=== PATIENT | female | born 1985 | race Hispanic/Latino ===

== ENCOUNTER 2024-03-23 13:49 | Inpatient (IN) | payer OTHER, SELFPAY ==
[2024-03-23 14:01] VITALS: BP 136/83; BMI 34.0
[2024-03-23] MEDS: LR 1000 IV ×2 (14:23→16:32)
[2024-03-23 14:49] LABS: % Basophils 0.1 % (0-2); % Eosinophils 0.2 % (0-6); % Immature Granulocytes 0.4 % (0-0.5); % Monocytes 8.3 % (1.7-9.3); Absolute Lymphocytes 1.8 10^3/uL (1.2-3.4); Absolute Monocytes 0.9 10^3/uL (0.1-0.6); Absolute Neutrophils 7.8 10^3/uL (1.4-6.5); Hematocrit 38.1 % (37.0-47.0); Hemoglobin 12.2 g/dL (12.0-16.0); Mean Corpuscular Hgb 28.8 pg (27.0-31.0); Mean Corpuscular Volume 90.1 fL (81.0-99.0); Mean Platelet Volume 10.9 fL (7.4-10.4); Nucleated Red Blood Cells % 0 %; Platelet Count 236 10^3/uL (130-400); Red Blood Cell Count 4.23 10^6/uL (4.20-5.40); Red Cell Dist. Width 13.5 % (11.5-14.5); White Blood Cell Count 10.6 10^3/uL (4.8-10.8)
[2024-03-23 15:01] LABS: Amphetamines Positive (Negative); Marijuana Positive (Negative); Tricyclic Antidepressants Negative (Negative)
[2024-03-23 15:02] LABS: Barbiturates Negative (Negative); Benzodiazepines Negative (Negative); Buprenorphine Negative (Negative); Cocaine Negative (Negative); Methadone Positive (Negative); Methamphetamines Negative (Negative); Opiates Negative (Negative); Phencyclidine Negative (Negative)
[2024-03-23 15:14] LABS: ALT (SGPT) 16 U/L (0-35); AST (SGOT) 29 U/L (14-36); Albumin 3.4 g/dl (3.5-5.0); Alkaline Phosphatase 178 U/L (38-126); Blood Urea Nitrogen 8 mg/dl (7-17); Calcium 8.6 mg/dl (8.4-10.2); Carbon Dioxide 22 mmol/L (22-30); Chloride 100 mmol/L (98-107); Estimated Creatinine Clearance > 125 ml/min; Glucose 80 mg/dl (70-99); Sodium 130 mmol/L (135-145); Total Bilirubin 0.5 mg/dl (0.2-1.3); Total Protein 6.5 g/dl (6.3-8.2); eGFR > 60.00
[2024-03-23 15:24] LABS: Fentanyl, Urine Negative (Negative)
[2024-03-23 15:52] LABS: HIV Combo Negative (Negative)
[2024-03-23 16:20] LABS: Hepatitis B Surface Antigen Negative (Negative)
--- NOTE | 2024-03-23 16:20 | CM ---
CM alerted by nursing that laboring patient with positive tox screen
Spouse reported to nursing previous CPS hx as well with prior child due to drug hx
Pt and spouse did not have custody at some point of prior child but are now reunited
CM will need to complete thorough assessment and report to CPS upon delivery of baby
[2024-03-23 16:39] LABS: Hepatitis B Core Ab, Total Negative (Negative); Hepatitis B Surface Antibody Negative; Hepatitis C Antibody Reactive (Negative)
[2024-03-23 16:58] LABS: Rubella Positive
[2024-03-23] MEDS: SUBLIMAZE 100 MCG EPIDURAL (17:18)
[2024-03-23] MEDS: FENTANYL/BUPIVACAINE 100 EPIDURAL (17:19)
[2024-03-23] MEDS: CLEOCIN 50 IV (17:47)
[2024-03-23] MEDS: ADDERALL 20 MG PO (17:47)
[2024-03-23] MEDS: PITOCIN 30 UNITS/NSS 500 ML IV (18:07)
[2024-03-23] MEDS: NICODERM TRANSDERMAL 21 MG TRANSDERM (20:39)
[2024-03-23] MEDS: NICODERM TRANSDERMAL TRANSDERM (20:41)
[2024-03-23] MEDS: TUMS CHEWABLE TABLET 400 MG PO (21:17)
[2024-03-24] MEDS: LR 1000 IV ×2 (00:15→04:51)
[2024-03-24] MEDS: FENTANYL/BUPIVACAINE 100 EPIDURAL ×2 (00:24→07:29)
[2024-03-24] MEDS: CLEOCIN 50 IV ×2 (01:46→08:23)
[2024-03-24] MEDS: TYLENOL 1000 MG PO (09:46)
[2024-03-24] MEDS: BICITRA 30 ML PO (09:47)
[2024-03-24] MEDS: GENTAMICIN 60 MG IV (10:30)
[2024-03-24] MEDS: NON-FORMULARY ITEM 130 MG PO (11:10)
[2024-03-24] MEDS: ADDERALL 30 MG PO (11:19)
[2024-03-24 15:33] LABS: % Basophils 0.3 % (0-2); % Eosinophils 0.1 % (0-6); % Immature Granulocytes 1.1 % (0-0.5); % Lymphocytes 4.5 % (20.5-51.1); % Monocytes 1.8 % (1.7-9.3); % Neutrophils 92.2 % (42.2-75.2); Absolute Basophils 0.1 10^3/uL (0-0.2); Absolute Immature Granulocytes 0.2 10^3/uL (0-0.05); Absolute Lymphocytes 0.8 10^3/uL (1.2-3.4); Absolute Monocytes 0.3 10^3/uL (0.1-0.6); Absolute Neutrophils 16.3 10^3/uL (1.4-6.5); Hemoglobin 12.6 g/dL (12.0-16.0); Mean Corp Hgb Conc. 33.2 g/dL (33.0-37.0); Mean Corpuscular Hgb 29.5 pg (27.0-31.0); Nucleated Red Blood Cells % 0 %; Platelet Count 212 10^3/uL (130-400); Red Blood Cell Count 4.27 10^6/uL (4.20-5.40); Red Cell Dist. Width 13.4 % (11.5-14.5); White Blood Cell Count 17.7 10^3/uL (4.8-10.8)
[2024-03-24] MEDS: NICODERM TRANSDERMAL 21 MG TRANSDERM (20:58)
[2024-03-24] MEDS: ADDERALL 20 MG PO (20:59)
[2024-03-25] MEDS: MOTRIN 600 MG PO ×2 (02:55→20:53)
[2024-03-25 03:18] LABS: Hematocrit 31.1 % (37.0-47.0); Hemoglobin 10.2 g/dL (12.0-16.0); Mean Corp Hgb Conc. 32.8 g/dL (33.0-37.0); Mean Corpuscular Hgb 29.3 pg (27.0-31.0); Mean Corpuscular Volume 89.4 fL (81.0-99.0); Mean Platelet Volume 10.8 fL (7.4-10.4); Platelet Count 211 10^3/uL (130-400); Red Blood Cell Count 3.48 10^6/uL (4.20-5.40); Red Cell Dist. Width 13.2 % (11.5-14.5); White Blood Cell Count 18.7 10^3/uL (4.8-10.8)
[2024-03-25] MEDS: ADDERALL 30 MG PO (08:11)
[2024-03-25] MEDS: SENOKOT-S 1 TABLET PO (08:12)
[2024-03-25] MEDS: METHADONE 100 MG/10 ML 130 MG PO (08:12)
[2024-03-25] MEDS: PRENATAL PLUS 1 TABLET PO (08:12)
--- NOTE | 2024-03-25 10:12 | CM ---
Addendum entered by Tianna Leslie 03/25/24 14:28:
Order form faxed to [facility] [phone] for breast pump
Addendum entered by Tianna Leslie 03/25/24 12:52:
Received call from Og at [facility]
Per Og this case will be given to Sudheer Jori to follow and develop a Plan of Safe Care as mother's medications were prescribed
Electrical Maintenance Man is June [phone]
not to be discharged until Plan of Safe Care is in place
Original Note:
CM consult - mom with + tox screen for methadone, amphetamines, marijuana
Met with new parents Fatuma and Trjimruss Cj
Parent have named their Hailee Corona
Parents reside at [address] [place] [id number] with their sons Bhupinder,14 and Orville, 10
Mom acknowledged she did not receive PNC - reports discovered in 2nd trimester. Attempted to obtain care but was unable to locate provider who accepted her insurance.
Mom reports she has supplies for including car seat, bassinet and clothing
Mom currently not enrolled in WIC program - given information to apply for program
Unsure of wastewater supervisor for infant - possibly [facility]
Mom currently unemployed. Father - employed
Discussed + tox screen with parents. Meconium pending
Mom acknowledges she takes methadone - attends clinic at [facility] in [place]. Reports prescribed Adderall for ADHD by her PCP, Dr Rakan Mcfadden. Mom reports she uses marijuana and has a medical marijuana card.
Parents aware infant will remain at hospital for 5-7 days for [facility]
Parents aware [facility] to be notified of + tox screen
noted to have tremors, irritability, sneezing and difficulty feeding per mother. Currently being monitored with [facility] by staff. Per staff + withdrawal symptoms noted.
[facility]ed [facility] to report case
Spoke with [id number] - report made
discharge is on hold pending determination of [facility] evaluation
[2024-03-25 13:59] LABS: Urine Albumin Trace (Neg - Trace); Urine Bilirubin Negative (Negative); Urine Character Clear (Clear); Urine Color Yellow; Urine Glucose Negative (Negative); Urine Ketone Negative (Negative); Urine Leukocyte 1+ (Negative); Urine Nitrite Negative (Negative); Urine Occult Blood 1+ (Negative); Urine Urobilinogen Negative (Neg - 1+)
[2024-03-25 14:47] LABS: Urine Mucus Few
[2024-03-25 14:48] LABS: Urine Amorphous Seen
[2024-03-25] MEDS: ADDERALL 20 MG PO (15:41)
[2024-03-25] MEDS: NICODERM TRANSDERMAL 21 MG TRANSDERM (20:54)
[2024-03-26] MEDS: MOTRIN 600 MG PO (05:57)
[2024-03-26] MEDS: ADDERALL 30 MG PO (08:15)
[2024-03-26] MEDS: PRENATAL PLUS PO ×2 (08:15→08:45)
[2024-03-26] MEDS: METHADONE 100 MG/10 ML 130 MG PO (08:15)
[2024-03-26] MEDS: NICODERM TRANSDERMAL 21 MG TRANSDERM (16:00)
[2024-03-26] MEDS: ADDERALL 20 MG PO (16:00)
[2024-03-26] MEDS: ADACEL 0.5 ML IM (18:52)
[2024-03-29 18:05] LABS: Syphilis/T. pallidum Ab Reflex Negative (Negative)
[2024-04-02 11:56] LABS: Hepatitis C Genotype High Res Indeterminate
== END 2024-03-26 19:07 | disposition home or self-care (01) | DRG 768 ==
LOC: LDRP 13:49
PROVIDERS: Obstetrics & Gynecology; Student in an Organized Health Care Education/Training Program; ADMITTING PHYSICIAN Obstetrics & Gynecology
PROC: 10H07YZ Insertion of Other Device into Products of Conception, Via Natural or Artificial Opening (ICD-10-PCS; 2024-03-23)
PROC: 10E0XZZ Delivery of Products of Conception, External Approach (ICD-10-PCS; 2024-03-24)
PROC: 0UBMXZZ Excision of Vulva, External Approach (ICD-10-PCS; 2024-03-24)
PROC: 0W3R7ZZ Control Bleeding in Genitourinary Tract, Via Natural or Artificial Opening (ICD-10-PCS; 2024-03-24)
PROC: 10D17Z9 Manual Extraction of Products of Conception, Retained, Via Natural or Artificial Opening (ICD-10-PCS; 2024-03-24)
PROC: 0HQ9XZZ Repair Perineum Skin, External Approach (ICD-10-PCS; 2024-03-24)
DX: O42.02 Full-term premature rupture of membranes, onset of labor within 24 hours of rupture (principal); Z37.0 Single live birth; F11.20 Opioid dependence, uncomplicated; O98.32 Other infections with a predominantly sexual mode of transmission complicating childbirth; O72.2 Delayed and secondary postpartum hemorrhage; O99.324 Drug use complicating childbirth; Z3A.39 39 weeks gestation of pregnancy; Z88.0 Allergy status to penicillin; O70.0 First degree perineal laceration during delivery; Z86.19 Personal history of other infectious and parasitic diseases; O99.334 Smoking (tobacco) complicating childbirth; F17.290 Nicotine dependence, other tobacco product, uncomplicated; F90.9 Attention-deficit hyperactivity disorder, unspecified type; F12.90 Cannabis use, unspecified, uncomplicated; F15.90 Other stimulant use, unspecified, uncomplicated; O76 Abnormality in fetal heart rate and rhythm complicating labor and delivery; A63.0 Anogenital (venereal) warts; R32 Unspecified urinary incontinence
CPT/HCPCS: 88304; 88307; 80053; 80306; 80307; 81003; 81015; 85025; 85027; 86704; 86706; 86762; 86780; 86803; 86850; 86900; 86901; 86920; 87070; 87086; 87340; 87389; 87491; 87591; 87902; 90715